=== PATIENT | female | born 1975 | race African-American/Black ===

== ENCOUNTER 2017-03-24 11:05 | Emergency (ER) | payer MEDICAID | END 2017-03-24 12:49 | disposition home or self-care (01) | LOC: D.ER 11:05 | DX: K04.7 Periapical abscess without sinus (principal); K08.89 Other specified disorders of teeth and supporting structures; F17.200 Nicotine dependence, unspecified, uncomplicated ==

== ENCOUNTER 2017-03-31 06:05 | Emergency (ER) | payer MEDICAID | END 2017-03-31 06:55 | disposition home or self-care (01) | LOC: D.ER 06:05 | DX: R19.7 Diarrhea, unspecified (principal); R11.0 Nausea; F17.200 Nicotine dependence, unspecified, uncomplicated ==

== ENCOUNTER 2017-04-10 16:42 | Emergency (ER) | payer MEDICAID | END 2017-04-10 18:01 | disposition home or self-care (01) | LOC: D.ER 16:42 | DX: K02.9 Dental caries, unspecified (principal); K08.89 Other specified disorders of teeth and supporting structures ==